=== PATIENT | male | born 1970 | race Caucasian/White ===

== ENCOUNTER 2021-09-21 17:28 | Emergency (ER) | payer OTHER ==
[~2021-09-21] VITALS: Ht 182.9 cm; Wt 93.0 kg
[2021-09-21] MEDS ORDERED: BUTALB-ACETAMI1 EAC7 PO (21:40)
== END 2021-09-21 22:05 | disposition home or self-care (01) ==
LOC: ER 17:28
DX: G44.209 Tension-type headache, unspecified, not intractable (principal)
CPT/HCPCS: 36415; A9270; J0780; J1200; J1885; J7030

== ENCOUNTER 2025-05-25 10:01 | Observation (INO) | payer OTHER, MEDICARE ==
[~2025-05-25] VITALS: Ht 182.9 cm; Wt 97.7 kg
[~2025-05-25 10:01] MED LIST: BUTALB-ACETAMI1 EAC7 PO
[2025-05-25] MEDS ORDERED: MECL12.5 PO (10:19)
[2025-05-25] MEDS ORDERED: Celexa20 MG PO (10:20)
[2025-05-25] MEDS ORDERED: BUPRENORPHIN-N1 EAC5 SL (10:20)
[2025-05-25] MEDS ORDERED: GABA300 PO (10:20)
[2025-05-25 10:49] LABS: BASOPHILS ABSOLUTE AUTO 0.06 K/mm3 (0.00-0.23); BASOPHILS PERCENT AUTO 1 % (0-2); EOSINOPHILS ABSOLUTE AUTO 0.22 K/mm3 (0.00-0.68); EOSINOPHILS PERCENT AUTO 3 % (0-6); Hematocrit 41.2 % (37.0-53.0); Hemoglobin 13.8 g/dL (13.5-17.5); IMMATURE GRAN ABSOLUTE AUTO 0.02 K/mm3 (0.00-0.10); IMMATURE GRAN PERCENT AUTO 0 % (0-1); LYMPHOCYTES ABSOLUTE AUTO 1.81 K/mm3 (0.84-5.20); LYMPHOCYTES PERCENT AUTO 23 % (21-46); MONOCYTES ABSOLUTE AUTO 0.46 K/mm3 (0.16-1.47); MONOCYTES PERCENT AUTO 6 % (4-13); Mean Corpuscular HGB Conc 33.5 g/dL (31.5-36.5); Mean Corpuscular Volume 90 fL (80-100); NEUTROPHILS ABSOLUTE AUTO 5.24 K/mm3 (1.96-9.15); NEUTROPHILS PERCENT AUTO 67 % (41-73); NRBC ABSOLUTE 0.00 K/mm3 (0.00-0.02); NRBC Auto 0.0 /100 WBC (0.0-0.2); Platelet Count 209 K/mm3 (150-400); RDW Coefficient Variation 12.1 % (11.7-14.2); RDW Standard Deviation 39.8 fL (35.1-46.3)
[2025-05-25 11:00] LABS: Alanine Aminotransfer (ALT/SGP 23.0 U/L (12-78); Albumin, Blood 3.9 g/dL (3.4-5.0); Albumin/Globulin Ratio 1.1 (0.8-1.8); Anion Gap 8.0 mmol/L (3-11); Aspartate Aminotrans (AST/SGOT 27.0 U/L (12-37); Bilirubin, Total 0.5 mg/dL (0.1-1.0); Blood Urea Nitrogen 14.0 mg/dL (8-24); CO2, Blood 28.0 mmol/L (21-32); Calcium, Blood 9.0 mg/dL (8.5-10.1); Chloride, Blood 105.0 mmol/L (98-108); Creatinine, Blood 0.89 mg/dL (0.60-1.20); Globulin, Blood 3.5 g/dL (2.2-4.0); Glucose, Blood 91.0 mg/dL (70-99); Magnesium, Blood 2.1 mg/dL (1.6-2.4); Potassium, Blood 4.7 mmol/L (3.5-5.5); Sodium, Blood 136.0 mmol/L (136-145); Total Protein, Blood 7.4 g/dL (6.4-8.2)
[2025-05-25 11:30] LABS: Anti-Xa UFH, PHA Monitoring <0.10 IU/mL; Prothrombin Time Results 10.9 Sec (9.7-11.5)
[2025-05-25] MEDS ORDERED: Dose Adjust by Pharmacy XX STA (11:39)
[2025-05-25] MEDS ORDERED: Heparin Sodium 5000 Units/ML 1ML MDV IV ONE (11:40)
[2025-05-25] MEDS ORDERED: Heparin Sodium,Porcine/0.5 NS 500 ML IV SCH (11:40)
[2025-05-25] MEDS ORDERED: FLU VACC TS2025-26(6MOS UP)/PF 45 MCG/0.5 ML SYRINGE IM SCH (12:55)
[2025-05-25] MEDS ORDERED: Ondansetron HCl 2 MG / ML 2ML Vial IV PRN (13:00)
[2025-05-25] MEDS ORDERED: IBUP800 PO (13:57)
[2025-05-25] MEDS ORDERED: Buprenorphine HCL/Naloxone HCL 8MG-2MG Tab SL SCH (14:00)
[2025-05-25 14:04] VITALS: BP 158/98
--- NOTE | 2025-05-25 14:38 | NUR ---
ASSUMPTION OF CARE/UPDATE: GOT REPORT FROM ED RN SHWETA. PT ARRIVED TO PCU AT APPROX 1342. PT ROOM AIR, SATS >95%. DENIES SOB. SINUS SUSAN 50-60s. DENIES CHEST PAIN/PRESSURE. OTHER VSS. PT HAS BEEN NPO FOR STRESS TEST. PT COMPLETED FIRST PART AT APPROX [id number]. PT BACK IN ROOM, NPO AT 0000 FOR SECOND HALF OF STRESS TEST TOMORROW. PT INDEP IN ROOM. CURRENTLY LYING IN BED, CALL WITHIN REACH.
[2025-05-25 15:43] VITALS: BP 122/90
--- NOTE | 2025-05-25 16:45 | NUR ---
SHIFT SUMMARY: PT A/O X4, ABLE TO MAKE NEEDS KNOWN. STRENGTH EQUAL BILATERALLY, PT C/O FOOT DROP ON THE LEFT LEG. ROOM AIR, SATS >95%. DENIES SOB, ENDORSES SOB ONLY WITH EXERTION. SINUS SUSAN 40-50s, DENIES CHEST PAIN/PRESSURE. OTHER VSS. PT INDEP IN ROOM, ABLE TO VOID APPROPRIATELY. PT HAD FIRST PORTION OF STRESS TEST TODAY, SECOND HALF TOMORROW. PT NPO AT 0000. PT CURRENTLY LYING IN BED, CALL WITHIN REACH.
--- NOTE | 2025-05-25 19:38 | NUR ---
ASSUMPTION OF CARE ASSUMED PT'S CARE AT 1900,PT WIDE AWAKE LYING IN BED.PLAN OF CARE REVIEWED.PT DENIES CHEST PAIN,DENIES GENERALIZED PAIN,DENIES NEEDS.CALL LIGHT AND PT'S ITEMS WITHIN REACH.MONITORING ONGOING PER CAREPLAN.
[2025-05-25 20:05] VITALS: BP 126/100
[2025-05-26 00:08] VITALS: BP 119/89
[2025-05-26 03:40] VITALS: BP 121/89
[2025-05-26 03:51] LABS: BASOPHILS ABSOLUTE AUTO 0.07 K/mm3 (0.00-0.23); BASOPHILS PERCENT AUTO 1 % (0-2); EOSINOPHILS ABSOLUTE AUTO 0.31 K/mm3 (0.00-0.68); EOSINOPHILS PERCENT AUTO 4 % (0-6); Hematocrit 39.8 % (37.0-53.0); Hemoglobin 13.7 g/dL (13.5-17.5); IMMATURE GRAN ABSOLUTE AUTO 0.02 K/mm3 (0.00-0.10); IMMATURE GRAN PERCENT AUTO 0 % (0-1); LYMPHOCYTES ABSOLUTE AUTO 2.19 K/mm3 (0.84-5.20); LYMPHOCYTES PERCENT AUTO 31 % (21-46); MONOCYTES ABSOLUTE AUTO 0.52 K/mm3 (0.16-1.47); MONOCYTES PERCENT AUTO 8 % (4-13); Mean Corpuscular HGB Conc 34.4 g/dL (31.5-36.5); Mean Corpuscular Volume 89 fL (80-100); NEUTROPHILS ABSOLUTE AUTO 3.86 K/mm3 (1.96-9.15); NEUTROPHILS PERCENT AUTO 55 % (41-73); NRBC ABSOLUTE 0.00 K/mm3 (0.00-0.02); NRBC Auto 0.0 /100 WBC (0.0-0.2); Platelet Count 195 K/mm3 (150-400); RDW Coefficient Variation 12.1 % (11.7-14.2); RDW Standard Deviation 39.6 fL (35.1-46.3)
[2025-05-26 04:21] LABS: Alanine Aminotransfer (ALT/SGP 21 U/L (12-78); Albumin, Blood 3.5 g/dL (3.4-5.0); Albumin/Globulin Ratio 1.1 (0.8-1.8); Anion Gap 6 mmol/L (3-11); Aspartate Aminotrans (AST/SGOT 23 U/L (12-37); Bilirubin, Total 0.6 mg/dL (0.1-1.0); Blood Urea Nitrogen 15 mg/dL (8-24); CHOL/HDL RATIO 3.8; CO2, Blood 29 mmol/L (21-32); Calcium, Blood 8.8 mg/dL (8.5-10.1); Chloride, Blood 107 mmol/L (98-108); Cholesterol 173 mg/dL (50-200); Creatinine, Blood 0.96 mg/dL (0.60-1.20); Globulin, Blood 3.3 g/dL (2.2-4.0); Glucose, Blood 90 mg/dL (70-99); HDL Cholesterol 45 mg/dL (>39); LDL/HDL RATIO 2.4; Low Density Lipoprotein Chol 106 mg/dL (0-110); Potassium, Blood 3.9 mmol/L (3.5-5.5); Sodium, Blood 138 mmol/L (136-145); Thyroid Stimulating Hormone 5.030 uIU/mL (0.360-4.800); Total Protein, Blood 6.8 g/dL (6.4-8.2); Triglycerides 110 mg/dL (30-160); Very Low Density Lipoprot Chol 22 mg/dL (6-32)
--- NOTE | 2025-05-26 06:39 | NUR ---
PT MONITORED DURING THE SHIFT,NO ACUTE EVENTS NOTED.NO C/O CHEST PAIN OR PRESSURE.PT INDEPENDENT IN ROOM.PT HAS BEEN NPO SINCE MIDNIGHT.PT DENIES NEEDS AT THIS TIME.CALL LIGHT AND PT'S ITEMS WITHIN REACH.MONITORING ONGOING PER CAREPLAN.
[2025-05-26] MEDS ORDERED: Aminophylline 250MG / 10ML 10 ML Vial ONE (07:59)
[2025-05-26 09:51] VITALS: BP 129/98
[2025-05-26 12:16] VITALS: BP 145/109
[2025-05-26] MEDS ORDERED: LOSA50 PO (12:56)
[2025-05-26] MEDS ORDERED: ASPI81CH PO (12:56)
--- NOTE | 2025-05-26 14:39 | NUR ---
DISCHARGE SUMMARY/SHIFT SUMMARY NESTOR IS ORIENTED X4, VSS ON RA. SR ON TELEMETRY, ABLE TO MAKE NEEDS KNOWN. DENIES CP OR DISCOMFORT. PLEASANT AND COOPEARTIVE. STRESS TEST COMPLETED THIS AFTERNOON AND PER DR. FRIEDMAN PLAN FOR DISCHARGE. SPOKE WITH DR. FRIEDMAN VIA PHONE REGARDING POTENTIAL NEED FOR CAROTID/NECK CTA TO EVALUATE FOR STENOSIS. PER MD PLAN TO RECCOMEND OUTPATIENT TO PCP BUT NO PLAN TO COMPLETE THIS ADMISSION. UPDATED PT ON PLAN WELL. PT DISCHARGED AFTER DC EDUCATION COMPLETED WITH PATIENT. VERBALIZED UNDERSTANDING. LEFT WITH ALL BELONGINGS AND PERSONAL EFFECTS.
== END 2025-05-26 14:35 | disposition home or self-care (01) ==
LOC: ER 10:01 → PCU 10:02
PROVIDERS: Student in an Organized Health Care Education/Training Program; ADMIT Internal Medicine
DX: I21.4 Non-ST elevation (NSTEMI) myocardial infarction (principal); I10 Essential (primary) hypertension; G89.4 Chronic pain syndrome; R00.1 Bradycardia, unspecified; E03.8 Other specified hypothyroidism; Z88.5 Allergy status to narcotic agent; Z79.899 Other long term (current) drug therapy; Z87.891 Personal history of nicotine dependence
CPT/HCPCS: 36415; 71045; 78452; 80053; 80061; 83735; 83880; 84439; 84443; 84484; 85025; 85520; 85610; 85730; 93005; 93010; 93017; 93306; 96365; 99285-25; A9270; A9500; G0378; J0280; J1644; J2785